=== PATIENT | female | born 1975 | race Hispanic/Latino ===

== ENCOUNTER 2024-08-06 05:53 | Day surgery (SDC) | payer OTHER ==
[2024-08-06] MEDS ORDERED: Ringers Lactate 1,000 ML IV ONE (06:10)
[2024-08-06] MEDS ORDERED: NA CHLORIDE 0.9% 100 ML ONE (06:10)
[2024-08-06] MEDS: CEFAZOLIN SODIUM 1 GM/VIAL ONE (06:25)
[2024-08-06] MEDS: SCOPOLAMINE HYDROBROMIDE PATCH TD ONE (06:43)
[2024-08-06] MEDS ORDERED: LIDOCAINE 1% 20 ML MDV ONE (06:48)
[2024-08-06] MEDS ORDERED: BUPIVACAINE 0.5% PF 10 ML VIAL ONE (06:48)
[2024-08-06] MEDS ORDERED: KETOROLAC 30 MG/ML INJ ONE (07:26)
[2024-08-06] MEDS ORDERED: FENTANYL CITR 100 MCG/2 ML ONE (07:26)
[2024-08-06] MEDS ORDERED: LIDOCAINE 1% MPF 5 ML VIAL ONE (07:26)
[2024-08-06] MEDS ORDERED: MIDAZOLAM HCL 2 MG/2 ML INJ ONE (07:26)
[2024-08-06] MEDS ORDERED: ONDANSETRON 4 MG/2 ML VIAL ONE (07:26)
[2024-08-06] MEDS ORDERED: propofoL 200 MG/20 ML VIAL IV ONE (07:26)
[2024-08-06] MEDS ORDERED: BUPIVACAINE 0.25% PF 30 ML VIAL ONE (07:46)
[2024-08-06] MEDS: BUPIVACAINE 0.5% PF 10 ML VIAL ONE (08:16)
[2024-08-06 08:59] VITALS: O2SAT 100
[2024-08-06 10:54] VITALS: BP 116/70
[2024-08-06 10:55] VITALS: TEMP 97
--- NOTE | 2024-08-08 10:57 | RAD REPORT ---
EXAM: Fluoroscopy use, Fluoroscopy <1 Hour HISTORY: FOOT SX COMPARISON: None FINDINGS: Multiple images were sent to PACS, during a fluoroscopically guided procedure. No radiologi st was involved in protocoling or performance of the study, and no radiologist was present for the duration of the procedure. No interpretation of the saved images will be provided. Total fluoroscopy time: 0.1 minutes. IMPRESSION: Documentation of fluoroscopy use as above. Transcribed Date/Time: 08/08/2024 10:57 AM
== END 2024-08-06 10:48 | disposition home or self-care (01) ==
LOC: OR 05:53
PROVIDERS: ATTEND Podiatrist Foot & Ankle Surgery
PROC: 0QBR0ZZ Excision of Left Toe Phalanx, Open Approach (ICD-10-PCS; principal; 2024-08-06 07:00)
DX: M25.775 Osteophyte, left foot (principal)
CPT/HCPCS: 81025; 28124; J2704; J2003; J2250; J3010; J2405; J7120; J0690; 76000